=== PATIENT | female | born 1965 | race Two or more races ===

== ENCOUNTER 2016-11-18 13:19 | Emergency (ER) | payer MEDICARE, MEDICAID ==
--- NOTE | 2016-11-18 13:34 | ER Document Report ---
ED Medical Screen (RME) - General Chief Complaint: Foot Pain Stated Complaint: RIGHT FOOT PAIN, SWELLING, DRAINAGE Mode of Arrival: Wheelchair Information source: Patient Notes: 51 y/o F presents to ED c/o worsening right foot pain and drainage over the last week. Reports has had wound/ulcer to right foot over the last 5 years. I have greeted and performed a rapid initial assessment of this patient. A comprehensive ED assessment and evaluation of the patient, analysis of test results and completion of the medical decision making process will be conducted by additional ED providers. TRAVEL OUTSIDE OF THE [place] IN LAST 30 DAYS: No - Related Data Allergies/Adverse Reactions: No Known Allergies Allergy (Verified 11/18/16 13:28) Past Medical History - Social History Chew tobacco use (# tins/day): No Frequency of alcohol use: None Drug Abuse: Bath salts Family history: Reviewed & Not Pertinent Pulmonary Medical History: Reports: Hx Pneumonia Endocrine Medical History: Reports: Hx Diabetes Mellitus Type 1, Hx Diabetes Mellitus Type 2 Renal/ Medical History: Denies: Hx Peritoneal Dialysis GI Medical History: Reports: Hx Gastritis, Hx Gastroesophageal Reflux Disease Musculoskeltal Medical History: Reports Hx Muscular Dystrophy Past Surgical History: Reports: Hx Cholecystectomy - Immunizations Hx Diphtheria, Pertussis, Tetanus Vaccination: Yes Physical Exam - Vital signs Vitals: Temp Pulse Resp BP Pulse Ox 98.2 F 81 20 98/63 L 95 11/18/16 13:30 11/18/16 13:30 11/18/16 13:30 11/18/16 13:30 11/18/16 13:30 - General General appearance: Appears well, Alert In distress: None Course - Vital Signs Vital signs: Temp Pulse Resp BP Pulse Ox 98.2 F 81 20 98/63 L 95 11/18/16 13:30 11/18/16 13:30 11/18/16 13:30 11/18/16 13:30 11/18/16 13:30
[2016-11-18 14:03] LABS: ABSOLUTE EOSINOPHILS # (AUTO) 0.1 10^3/uL (0.0-0.6); ABSOLUTE LYMPHOCYTES (AUTO) 1.6 10^3/uL (0.5-4.7); ABSOLUTE MONOCYTES (AUTO) 0.6 10^3/uL (0.1-1.4); ABSOLUTE NEUT (AUTO) 4.3 10^3/uL (1.7-8.2); BASOPHILS % (AUTO) 0.5 % (0-2); EOSINOPHILS % (AUTO) 0.8 % (0-6); HEMATOCRIT 38.5 % (36.0-47.0); HEMOGLOBIN 12.7 g/dL (12.0-15.5); HGB HCT DIFFERENCE -0.4; LYMPHOCYTES % (AUTO) 24.6 % (13-45); MEAN CORPUSCULAR HEMOGLOBIN 30.1 pg (27.0-33.4); MEAN CORPUSCULAR HGB CONC 33.1 g/dL (32.0-36.0); MEAN CORPUSCULAR VOLUME 91 fl (80-97); MONOCYTES % (AUTO) 8.6 % (3-13); RED BLOOD COUNT 4.23 10^6/uL (3.72-5.28); RED CELL DISTRIBUTION WIDTH 13.5 % (11.5-14.0); SEGMENTED NEUTROPHILS % (AUTO) 65.5 % (42-78); WHITE BLOOD COUNT 6.5 10^3/uL (4.0-10.5)
--- NOTE | 2016-11-18 14:13 | ER Document Report ---
ED Extremity Problem, Lower - General Chief Complaint: Foot Pain Stated Complaint: RIGHT FOOT PAIN, SWELLING, DRAINAGE Time seen by provider: 14:13 Mode of Arrival: Wheelchair Information source: Patient Notes: 51 yo bed and wheelchair bound female with muscular dystrophy was sent by wound care clinic tuesday for reevaluation of chronic right foot swelling, dorsal foot ulcer, and 2nd toe osteomylitis. She had vascular recanulation or the right leg in [place] which has not improved the wound. No recent antibiotics and she states she can't take anything stronger than 500 mg.No myalgias or fever. No recent xray or bone scan. Not interested in any amputation. TRAVEL OUTSIDE OF THE [place] IN LAST 30 DAYS: No - Related Data Allergies/Adverse Reactions: No Known Allergies Allergy (Verified 11/18/16 13:28) Past Medical History - General Information source: Patient - Social History Smoking Status: Current Every Day Smoker Chew tobacco use (# tins/day): No Frequency of alcohol use: None Drug Abuse: None Lives with: Family Family History: Reviewed & Not Pertinent Patient has suicidal ideation: No Patient has homicidal ideation: No Pulmonary Medical History: Reports: Hx Pneumonia Endocrine Medical History: Reports: Hx Diabetes Mellitus Type 1 Renal/ Medical History: Denies: Hx Peritoneal Dialysis GI Medical History: Reports: Hx Gastritis, Hx Gastroesophageal Reflux Disease Musculoskeltal Medical History: Reports Hx Muscular Dystrophy Other: chronic right foot ulcer, edema, osteomylitis 2nd toe Past Surgical History: Reports: Hx Cholecystectomy - Immunizations Hx Diphtheria, Pertussis, Tetanus Vaccination: Yes Review of Systems - Review of Systems Constitutional: No symptoms reported EENT: No symptoms reported Cardiovascular: No symptoms reported Respiratory: No symptoms reported Gastrointestinal: No symptoms reported Genitourinary: No symptoms reported Female Genitourinary: No symptoms reported Musculoskeletal: No symptoms reported Skin: See HPI Hematologic/Lymphatic: No symptoms reported Neurological/Psychological: No symptoms reported Physical Exam - Vital signs Vitals: Temp Pulse Resp BP Pulse Ox 98.2 F 81 20 98/63 L 95 11/18/16 13:30 11/18/16 13:30 11/18/16 13:30 11/18/16 13:30 11/18/16 13:30 Interpretation: Normal - General General appearance: Appears well, Alert In distress: None - HEENT Head: Normocephalic, Atraumatic Eyes: Normal Pupils: PERRL Neck: Supple - Respiratory Respiratory status: No respiratory distress Chest status: Nontender Breath sounds: Normal Chest palpation: Normal - Cardiovascular Rhythm: Regular Heart sounds: Normal auscultation Murmur: No - Abdominal Inspection: Normal Distension: No distension Bowel sounds: Normal Tenderness: Nontender Organomegaly: No organomegaly - Back Back: Normal, Nontender - Extremities General upper extremity: Normal inspection, Nontender, Normal color, Normal ROM , Normal temperature General lower extremity: Normal inspection, Nontender, Normal color, Normal ROM , Normal temperature, Normal weight bearing. No: Tomy's sign Foot: Tender - distal dorsal right foot ulcerations over the 2-5 MT's with foul smelling discharge, thick dark scaling skin dorsal foot, edema whole foot, able to move toes with faint DP pulse, cap refill normal. increased swelling to 2nd right toe. warm foot to the ankle. no ascending lymphangitis, Edema - Neurological Neuro grossly intact: Yes Cognition: Normal Orientation: AAOx4 [place] Coma Scale Eye Opening: Spontaneous [place] Coma Scale Verbal: Oriented Alivia Coma Scale Motor: Obeys Commands Alivia Coma Scale Total: 15 Speech: Normal Motor strength normal: LUE, RUE, LLE, RLE Sensory: Normal - Psychological Associated symptoms: Normal affect, Normal mood - Skin Skin Temperature: Warm Skin Moisture: Dry Skin Color: Normal Course - Re-evaluation Re-evalutation: 11/18/16 14:27 I have consulted with the supervisory physician per [facility] APC Guidelines. DR. AGUDELO 11/18/16 16:01 Radha at the wound care clinic says she's not had any antibiotics since August. 11/18/16 16:03 xray osteomylitis 2nd right toe, no interval change 11/18/16 16:[address] bowles will follow up with her at the office. Clindmaycin antibiotic good choice per dr. agudelo, pending the wound cx. vitals stable. - Vital Signs Vital signs: Temp Pulse Resp BP Pulse Ox 98.9 F 72 14 102/64 96 11/18/16 16:36 11/18/16 16:36 11/18/16 16:36 11/18/16 16:36 11/18/16 16:36 - Laboratory Result Diagrams: 11/18/16 13:45 11/18/16 13:45 Laboratory results interpreted by me: 11/18/16 13:45 Potassium 5.1 H Creatinine 0.34 L Discharge - Discharge Clinical Impression: osteomylitis 2nd toe, chronic right foot wound Condition: Good Disposition: HOME, SELF-CARE Instructions: Cellulitis ([facility]), Clindamycin ([facility]), Osteomyelitis ([facility]) Additional Instructions: see dr. gallardo tomorrow for recheck to er if worse wound culture pending referral to general surgoen given in paper work Prescriptions: Clindamycin HCl [Cleocin 150 mg Capsule] 300 mg PO QID #60 capsule Referrals: TRISTAN BOWLES MD [Primary Care Provider] - Follow up tomorrow LOLIS CROFT MD [ACTIVE STAFF] - Follow up in 3-5 days
[2016-11-18 14:27] LABS: ALANINE AMINOTRANSFERASE 17 U/L (9-52); ALKALINE PHOSPHATASE 77 U/L (38-126); ANION GAP 11 (5-19); ASPARTATE AMINO TRANSFERASE 16 U/L (14-36); BILIRUBIN,TOTAL 0.7 mg/dL (0.2-1.3); BLOOD UREA NITROGEN 10 mg/dL (7-20); CALCIUM 9.5 mg/dL (8.4-10.2); CARBON DIOXIDE 27 mmol/L (22-30); CHLORIDE 101 mmol/L (98-107); CREATININE RESULT 0.34 mg/dL (0.52-1.25); GLUCOSE 105 mg/dL (75-110); POTASSIUM 5.1 mmol/L (3.6-5.0); SODIUM 139.3 mmol/L (137-145); TOTAL PROTEIN 7.6 g/dL (6.3-8.2)
[2016-11-18] MEDS ORDERED: CLINDAMYCIN HCL 150 MG CAPSULE PO ONE (16:20)
[2016-11-18 16:46] VITALS: BP 102/64
== END 2016-11-18 16:36 | disposition home or self-care (01) ==
LOC: ER 13:19
DX: E11.621 Type 2 diabetes mellitus with foot ulcer (principal); L97.519 Non-pressure chronic ulcer of other part of right foot with unspecified severity; E11.69 Type 2 diabetes mellitus with other specified complication; M86.9 Osteomyelitis, unspecified; F17.200 Nicotine dependence, unspecified, uncomplicated; G71.0 Muscular dystrophy
CPT/HCPCS: 99283; 36415; 87070; 87205; 85025; 87075; 87077; 80053; 87186; 73630; A9270

== ENCOUNTER 2017-05-12 09:59 | Day surgery (SDC) | payer MEDICARE, MEDICAID ==
[~2017-05-12 09:59] MED LIST: CHONDR SU A NA/HYALUR INTRAOC KIT (SURGICARE) ONE; EPINEPHRINE INJ/PF 1 MG/1 ML AMPULE ONE; KETOROLAC TROMETHAMINE 0.45% 4 DROP/0.4 ML DROPERETTE OD PRN; LIDOCAINE 1% INJ-PF (10 MG/ML) 30 ML SDV ONE
[2017-05-12] MEDS ORDERED: MIDAZOLAM 2 MG/2 ML INJ ONE (10:25)
[2017-05-12] MEDS: TROPICAMIDE 1% OPH SOLN 3 ML OD PRN ×3 (10:28→11:02)
[2017-05-12] MEDS: CYCLOPENTOLATE 0.2%/PHENYLEPHRINE 1% OPH SOLN 2 ML OD PRN ×3 (10:28→11:02)
[2017-05-12] MEDS: BESIFLOXACIN HCL 0.6% OPH SUSP 5 ML BOTTLE OD PRN ×3 (10:29→11:39)
[2017-05-12] MEDS: TETRACAINE HCL 0.5% OPH SOLN 2 ML OD PRN ×3 (10:30→11:10)
[2017-05-12] MEDS ORDERED: CHONDR SU A NA/HYALUR SOD 0.5 ML DISP.SYRIN ONE (11:25)
--- NOTE | 2017-05-13 07:44 | [facility] OPERATIVE REPORT E ---
[facility] Operative Report NAME: BLUE LOPEZ AGE: 52Y DATE OF SURGERY: 05/12/2017 ROOM: PREOPERATIVE DIAGNOSIS: CATARACT, RIGHT EYE. POSTOPERATIVE DIAGNOSIS: CATARACT, RIGHT EYE. OPERATION: Cataract extraction with intraocular lens implant of the right eye. SURGEON: DEANN WHALEN M.D. ANESTHESIA: Topical. PROCEDURE: After obtaining appropriate consent, the patient's right eye was prepped and draped in sterile fashion as well as the surgeon in a sterile manner and cataract surgery was started. First a paracentesis blade was used to make a small side-port incision. Viscoelastic was used to inflate the anterior chamber. Next a 2.4 mm incision was made with the paracentesis blade. A continuous capsulorrhexis incision was made using a cystotome and Utrata forceps. Following this hydrodissection was carried out to make the lens fully loose and mobile and it was rotated 90 degrees. Following this, a nwylbn-ezb-balsgsr technique was used to phacoemulsify the lens with a CDE of 5.38. The remaining cortex was removed with irrigation/aspiration. Provisc was instilled into the capsular bag to inflate the bag. A SN60WF, 22.0 diopter lens was placed. The remaining viscoelastic material was removed with irrigation/aspiration. Following this, a 10-0 nylon suture was used to close the incision and it was found to be watertight. Vigamox was instilled in the eye and a protective shield was placed over the eye. The patient returned to the postoperative recovery in stable condition. DICTATING PHYSICIAN: DEANN WHALEN M.D. [id number] PHY#: [id number] ID: [id number] JOB#: [id number] ACCT: [id number] cc:DEANN WHALEN M.D. >
--- NOTE | 2017-05-13 07:44 | [facility] DISCHARGE SUMMARY E ---
[facility] Discharge Summary NAME: BLUE LOPEZ AGE: 52Y ADMITTED: 05/12/2017 DISCHARGED: 05/12/2017 HOSPITAL COURSE: This is a 52-year-old female who underwent cataract extraction of the right eye. DIAGNOSIS: Cataract, right eye. INDICATIONS: She underwent surgery because she was having trouble seeing road signs and small print. DISCHARGE INSTRUCTIONS: She is to be on a regular diet. No bending at her waist. No heavy lifting. She should use her Besivance, Ilevro, and Durezol at 3 p.m. and 8 p.m. and sleep with a rigid shield. I will see her for her 1 day postoperative tomorrow. DICTATING PHYSICIAN: DEANN WHALEN M.D. [id number] PHY#: [id number] ID: [id number] JOB#: [id number] ACCT: [id number] cc:DEANN WHALEN M.D. >
== END 2017-05-12 12:32 | disposition home or self-care (01) ==
LOC: SC 09:59
PROVIDERS: ATTEND Internal Medicine
PROC: 08RJ3JZ Replacement of Right Lens with Synthetic Substitute, Percutaneous Approach (ICD-10-PCS; principal; 2017-05-12 11:30)
DX: H25.11 Age-related nuclear cataract, right eye (principal); E11.9 Type 2 diabetes mellitus without complications; F17.210 Nicotine dependence, cigarettes, uncomplicated; G71.0 Muscular dystrophy; Z79.899 Other long term (current) drug therapy; Z99.3 Dependence on wheelchair
CPT/HCPCS: 66984; V2632; J2250; J3490 ×3; A9270; J0171; 142

== ENCOUNTER 2019-01-02 15:33 | Day surgery (SDC) | payer MEDICARE, MEDICAID ==
[2019-01-02] MEDS ORDERED: NALOXONE HCL INJ/PF 0.4 MG/1 ML SDV ONE (15:35)
[2019-01-02] MEDS ORDERED: FENTANYL CITRATE INJ/PF 100 MCG/2 ML AMPUL ONE (15:35)
[2019-01-02] MEDS ORDERED: DIPHENHYDRAMINE HCL 50 MG/ML VIAL ONE (15:35)
[2019-01-02] MEDS ORDERED: FLUMAZENIL INJ 0.5 MG/5 ML VIAL ONE (15:35)
[2019-01-02] MEDS ORDERED: ONDANSETRON HCL INJ/PF 4 MG/2 ML SDV ONE (15:35)
[2019-01-02] MEDS ORDERED: GLUCAGON,HUMAN RECOMB 1 MG INJ ONE (15:36)
[2019-01-02] MEDS ORDERED: EPINEPHRINE INJ 1 MG/10 ML DISP.SYRIN ONE (15:36)
[2019-01-02] MEDS: MIDAZOLAM 2 MG/2 ML INJ ONE ×2 (16:20→16:25)
--- NOTE | 2019-01-02 16:41 | Operative Report ---
Operative Report DATE OF SURGERY: 01/02/19 Operative Report: Pre-op diagnosis: Colon cancer screening Post-op diagnosis: Polyps in the sigmoid and transverse colon Surgery: Colonoscopy with polypectomy Medications: Versed 1.5mg, Fentanyl 50mcg IV push Tissue removed: Colon polyps Procedure: After informed consent obtained from patient, conscious sedation was achieved. A digital rectal examination was performed and this was unremarkable. The colonoscope was inserted into the rectum and advanced to the cecum. The appendiceal orifice and the terminal ileum were both identified. The mucosa was examined into details as the colonoscope was slowly pulled out of the patient. The endoscope was retroflexed in the rectum. Patient tolerated the procedure well. Findings Cecum: Normal Ascending colon: Normal Transverse colon: Two 4 mm polyps removed with the cold snare Descending colon: Normal Sigmoid colon: Two 4 mm polyps removed with a cold snare Rectum: Normal except for internal hemorrhoids Plan: Await pathology. Follow-up colonoscopy in 5 years OPERATION: .
[2019-01-02 17:34] VITALS: BP 125/67
== END 2019-01-02 17:35 | disposition home or self-care (01) ==
LOC: END 15:33
PROVIDERS: ATTEND Internal Medicine Gastroenterology
DX: Z12.11 Encounter for screening for malignant neoplasm of colon (principal); D12.5 Benign neoplasm of sigmoid colon; D12.3 Benign neoplasm of transverse colon; K64.8 Other hemorrhoids; K21.9 Gastro-esophageal reflux disease without esophagitis; D64.9 Anemia, unspecified; E11.9 Type 2 diabetes mellitus without complications; G71.00 Muscular dystrophy, unspecified; Z86.73 Personal history of transient ischemic attack (TIA), and cerebral infarction without residual deficits; Z79.899 Other long term (current) drug therapy; Z79.891 Long term (current) use of opiate analgesic
CPT/HCPCS: 45385; 82962; 88305 ×2; J2250; J3010; J0171; J1200; J1610; J2310; J2405; J3490